=== PATIENT | male | born 1955 | race American Indian/Alaskan Native ===

== ENCOUNTER 2022-02-23 12:04 | Emergency (ER) | payer MEDICARE ==
[2022-02-23 13:17] LABS: Basophils % (Auto) 0.5 % (0.0-1.8); Eosinophils # (Auto) 0.1 K/mm3 (0.0-0.4); Eosinophils % (Auto) 1.2 % (0.0-4.3); Hematocrit 45.9 % (35.5-45.6); Hemoglobin 15.6 gm/dl (11.8-15.2); Lymphocytes # (Auto) 1.4 K/mm3 (1.2-5.4); Lymphocytes % (Auto) 29.2 % (13.4-35.0); Mean Corpuscular HGB Conc 34 % (32-34); Mean Corpuscular Volume 97 fl (84-94); Monocytes # (Auto) 0.5 K/mm3 (0.0-0.8); Monocytes % (Auto) 9.9 % (0.0-7.3); Platelet Count 299 K/mm3 (140-440); Red Blood Count 4.71 M/mm3 (3.65-5.03); Red Cell Distribution Width 13.8 % (13.2-15.2)
[2022-02-23 13:51] LABS: Alanine Aminotransferase 19 units/L (7-56); Albumin 4.6 g/dL (3.9-5); BUN/Creatinine Ratio 13; Blood Urea Nitrogen 12 mg/dL (9-20); Calcium 9.9 mg/dL (8.4-10.2); Hemolysis Index 8
--- NOTE | 2022-02-23 15:20 | XRay Report ---
CHEST 2 VIEWS INDICATION / CLINICAL INFORMATION: chest pain. COMPARISON: None available. FINDINGS: SUPPORT DEVICES: None. HEART / MEDIASTINUM: No significant abnormality. LUNGS / PLEURA: No significant pulmonary or pleural abnormality. No pneumothorax. ADDITIONAL FINDINGS: No significant additional findings. IMPRESSION: 1. No acute findings. Signer Name: Enmanuel Shultz MD Signed: 02/23/2022 3:15 PM Workstation Name: [email or web address]
[2022-02-23] MEDS ORDERED: SODIUM CHLORIDE 0.9% 1000 ML 1,000 ML IV ONE (15:27)
--- NOTE | 2022-02-23 15:45 | Emergency Department Report ---
ED Chest Pain HPI - General Chief Complaint: Chest Pain Stated Complaint: BACK/CHEST PAIN Time Seen by Provider: 02/23/22 14:43 Source: patient Mode of arrival: Ambulatory Limitations: No Limitations - History of Present Illness Initial Comments: 66-year-old male smoker with a past medical history diabetes and hypertension currently intermittently taking metformin and lisinopril presents to the hospital with multiple complaints. Patient states he has lost 25 pounds over the last 3 months And states he has had decreased appetite and only eating on average once a day. He reports having mid upper sternal chest pain described as a dull pain for the last 1 to 2 weeks. Pain is intermittent, worse with inspiration. He denies exertional chest pain and denies associated symptoms including shortness of breath, nausea, vomiting, or diaphoresis. He also complains of right lower back/flank pain for the past 9 months and has seen a chiropractor who diagnosed her with "herniated disc" without any imaging studies. Patient complains of urinary frequency without burning or straining. He also endorses that he is feeling depressed and has expressed suicidal ideation to his female best friend at the bedside. Patient has not been seen by a primary care doctor since 2018 and his been taking his left over metformin and lisinopril intermittently since this time without an updated prescription. He denies history of previous stress test. He states his mother needed valve surgery but is unclear whether or not she had CAD.\\ Patient does not complain of chest pain or flank pain/lower back pain at this time Severity scale (0 -10): 3 - Related Data Allergies Allergy/AdvReac Type Severity Reaction Status Date / Time No Known Allergies Allergy Verified 02/23/22 12:30 Heart Score - HEART Score History: Slightly suspicious EKG: Normal Age: > 65 Risk factors: 1-2 risk factors Troponin: < normal limit HEART Score: 3 - EKG Read Time Time EKG Completed: 12:38 EKG Read Time: 12:44 ED Review of Systems ROS: Stated complaint: BACK/CHEST PAIN Other details as noted in HPI Comment: All other systems reviewed and negative ED Past Medical Hx - Past Medical History Previous Medical History?: Yes Hx Diabetes: Yes - Surgical History Past Surgical History?: No - Social History Smoking Status: Current Every Day Smoker Substance Use Type: None ED Physical Exam - General Limitations: No Limitations - Other Other exam information: General: No acute distress Head: Atraumatic Eyes: normal appearance ENT: Moist mucous membranes Neck: Normal appearance, no midline tenderness Chest: Clear to auscultation bilaterally CV: Regular rate and rhythm Abdomen: Soft, normal bowel sounds, nontender, nondistended, no rebound or guarding Back: Normal inspection Extremity: Normal inspection, full range of motion Neuro: Alert O x 3, no facial asymmetry, speech clear, no gross motor sensory deficit Psych: Appropriate behavior Skin: No rash ED Course Vital Signs 02/23/22 02/23/22 12:26 14:53 Temperature 98.2 F Pulse Rate 62 Respiratory 20 8 L Rate Blood Pressure 129/56 [Right] O2 Sat by Pulse 99 100 Oximetry PENNY score - Penny Score Age > 65: (1) Yes Aspirin use within the Past 7 Days: (0) No 3 or more CAD Risk Factors: (0) No 2 or more Angina events in past 24 hrs: (0) No Known CAD with more than 50% Stenosis: (0) No Elevated Cardiac Markers: (0) No ST Deviation Greater than 0.5mm: (0) No PENNY Score: 1 ED Medical Decision Making - Lab Data Result diagrams: 02/23/22 12:52 02/23/22 12:52 Lab Results 02/23/22 02/23/22 02/23/22 Range/Units 12:52 12:52 12:52 WBC 4.8 (4.5-11.0) K/mm3 RBC 4.71 (3.65-5.03) M/mm3 Hgb 15.6 H (11.8-15.2) gm/dl Hct 45.9 H (35.5-45.6) % MCV 97 H (84-94) fl MCH 33 H (28-32) pg MCHC 34 (32-34) % RDW 13.8 (13.2-15.2) % Plt Count 299 (140-440) K/mm3 Lymph % (Auto) 29.2 (13.4-35.0) % [place] % (Auto) 9.9 H (0.0-7.3) % Eos % (Auto) 1.2 (0.0-4.3) % Baso % (Auto) 0.5 (0.0-1.8) % Lymph # (Auto) 1.4 (1.2-5.4) K/mm3 [place] # (Auto) 0.5 (0.0-0.8) K/mm3 Eos # (Auto) 0.1 (0.0-0.4) K/mm3 Baso # (Auto) 0.0 (0.0-0.1) K/mm3 Seg Neutrophils % 59.2 (40.0-70.0) % Seg Neutrophils # 2.9 (1.8-7.7) K/mm3 Sodium 138 (137-145) mmol/L Potassium 4.7 (3.6-5.0) mmol/L Chloride 100.4 (98-107) mmol/L Carbon Dioxide 27 (22-30) mmol/L Anion Gap 15 mmol/L BUN 12 (9-20) mg/dL Creatinine 0.9 (0.8-1.3) mg/dL Estimated GFR > 60 ml/min BUN/Creatinine Ratio 13 % Glucose 140 H (75-100) mg/dL Calcium 9.9 (8.4-10.2) mg/dL Total Bilirubin 0.60 (0.1-1.2) mg/dL AST 20 (5-40) units/L ALT 19 (7-56) units/L Alkaline Phosphatase 78 (35-129) units/L Troponin T < 0.010 (0.00-0.029) ng/mL Total Protein 7.6 (6.3-8.2) g/dL Albumin 4.6 (3.9-5) g/dL Albumin/Globulin Ratio 1.5 % 05/20/22 Range/Units 15:43 WBC (4.5-11.0) K/mm3 RBC (3.65-5.03) M/mm3 Hgb (11.8-15.2) gm/dl Hct (35.5-45.6) % MCV (84-94) fl MCH (28-32) pg MCHC (32-34) % RDW (13.2-15.2) % Plt Count (140-440) K/mm3 Lymph % (Auto) (13.4-35.0) % [place] % (Auto) (0.0-7.3) % Eos % (Auto) (0.0-4.3) % Baso % (Auto) (0.0-1.8) % Lymph # (Auto) (1.2-5.4) K/mm3 [place] # (Auto) (0.0-0.8) K/mm3 Eos # (Auto) (0.0-0.4) K/mm3 Baso # (Auto) (0.0-0.1) K/mm3 Seg Neutrophils % (40.0-70.0) % Seg Neutrophils # (1.8-7.7) K/mm3 Sodium (137-145) mmol/L Potassium (3.6-5.0) mmol/L Chloride (98-107) mmol/L Carbon Dioxide (22-30) mmol/L Anion Gap mmol/L BUN (9-20) mg/dL Creatinine (0.8-1.3) mg/dL Estimated GFR ml/min BUN/Creatinine Ratio % Glucose (75-100) mg/dL Calcium (8.4-10.2) mg/dL Total Bilirubin (0.1-1.2) mg/dL AST (5-40) units/L ALT (7-56) units/L Alkaline Phosphatase (35-129) units/L Troponin T < 0.010 (0.00-0.029) ng/mL Total Protein (6.3-8.2) g/dL Albumin (3.9-5) g/dL Albumin/Globulin Ratio % - EKG Data -: EKG Interpreted by [place] EKG shows normal: sinus rhythm, ST-T waves (no stemi) Rate: normal (60) - EKG Data When compared to previous EKG there are: previous EKG unavailable - Radiology Data Radiology results: report reviewed CHEST 2 VIEWS INDICATION / CLINICAL INFORMATION: chest pain. COMPARISON: None available. FINDINGS: SUPPORT DEVICES: None. HEART / MEDIASTINUM: No significant abnormality. LUNGS / PLEURA: No significant pulmonary or pleural abnormality. No pneumothorax. ADDITIONAL FINDINGS: No significant additional findings. IMPRESSION: 1. No acute findings. CTA CHEST WITH CONTRAST INDICATION : chest pain, weight loss. TECHNIQUE: Axial imaging performed through the chest, with contrast bolus t iming set to maximize opacification of the pulmonary arteries. Sagittal and coronal reformatted salvador ges. 3-plane MIP reformatted images were obtained. All CT scans at this location are performed using CT dose reduction for ALARA by means of automated exposure control. Omnipaque 350 100 mL of intravenous contrast administered. COMPARISON: None FINDINGS: Bolus: Contrast bolus timing is adequate. PTE: No filling defect is present to suggest PTE. Mediastinum: Heart and great vessels appear normal. No pathologic mediastinal adenopathy. Lungs: Minimal centrilobular emphysematous changes are identified in the upper lung zones. No evidence for nodule, infiltrate, interstitial disease, pleural effusion or pneumothorax. Bones: Degenerative changes in the spine with nothing acute. Upper abdomen: The left kidney is not identified in the upper abdomen. This could represent ectopia, agenesis or nephrectomy. IMPRESSION: Negative for PTE. Clear lungs. Minimal emphysematous changes. The left kidney is not identified in the upper abdomen. See above. CT ABDOMEN AND PELVIS WITH CONTRAST HISTORY: right flank pain, decrease appetite weight loss COMPARISON: None TECHNIQUE: Routine abdominal and pelvic CT exam performed following intravenous contrast administration.. All CT scans at this location are performed using CT dose reduction for ALARA by means of automated exposure control. FINDINGS: CT ABDOMEN: Lung Bases: No significant abnormality. Liver: No significant abnormality. Biliary: No significant abnormality. Spleen: No significant abnormality. Unenlarged. Pancreas: No significant abnormality. Adrenals: No significant abnormality. Kidneys: No acute findings. Left kidney is abnormally low in the abdomen. Lymphatics: No lymphadenopathy. Vasculature: No significant abnormality. Bowel/Peritoneum: No significant abnormality. No free air. No free fluid. Norm al appendix. CT PELVIC: : No significant abnormality. Lymphatics: No lymphadenopathy. Osseous Structures: No aggressive appearing osseous lesions. Additional Findings: None IMPRESSION: 1. No acute findings. - Medical Decision Making 66-year-old male presents to the hospital with multiple complaints including chest pain for several weeks, right lower back pain for at least 9 months, and decreased appetite with weight loss for the last couple of months. Patient did not have any associated symptoms. Patient had a heart score of 3 he received ED cardiac work-up including troponin x2 and EKG. These results were normal and patient did not have active chest pain in the ED. He received him CT angiogram chest and CT abdomen and pelvis did not show any acute abnormality to suggest PE cancer or metastasis as cause of chest pain or decrease appetite. Patient medically cleared and pending inpatient psychiatric admission with depression and associated decreased appetite. Since patient is suicidal 1013 has been signed Critical Care Time: No Critical care attestation.: If time is entered above; I have spent that time in minutes in the direct care of this critically ill patient, excluding procedure time. ED Disposition Clinical Impression: Suicidal ideation, Decreased appetite, Depression, Atypical chest pain, Medical clearance for psychiatric admission, Diabetes Disposition: 01 HOME / SELF CARE / HOMELESS Is pt being admited?: No Does the pt Need Aspirin: No Condition: Stable Instructions: Diabetes Mellitus Type 2 in Adults (ED) Time of Disposition: 20:59
--- NOTE | 2022-02-23 16:34 | Cat Scan Report ---
CTA CHEST WITH CONTRAST INDICATION : chest pain, weight loss. TECHNIQUE: Axial imaging performed through the chest, with contrast bolus timing set to maximize opa cification of the pulmonary arteries. Sagittal and coronal reformatted images. 3-plane MIP reformatte d images were obtained. All CT scans at this location are performed using CT dose reduction for ALAR A by means of automated exposure control. Omnipaque 350 100 mL of intravenous contrast administered. COMPARISON: None FINDINGS: Bolus: Contrast bolus timing is adequate. PTE: No filling defect is present to suggest PTE. Mediastinum: Heart and great vessels appear normal. No pathologic mediastinal adenopathy. Lungs: Minimal centrilobular emphysematous changes are identified in the upper lung zones. No eviden ce for nodule, infiltrate, interstitial disease, pleural effusion or pneumothorax. Bones: Degenerative changes in the spine with nothing acute. Upper abdomen: The left kidney is not identified in the upper abdomen. This could represent ectopia, agenesis or nephrectomy. IMPRESSION: Negative for PTE. Clear lungs. Minimal emphysematous changes. The left kidney is not identified in the upper abdomen. See above. Signer Name: Mendez Walter Jr, MD Signed: 02/23/2022 4:29 PM Workstation Name: [id number]
--- NOTE | 2022-02-23 16:40 | Cat Scan Report ---
CT ABDOMEN AND PELVIS WITH CONTRAST HISTORY: right flank pain, decrease appetite weight loss COMPARISON: None TECHNIQUE: Routine abdominal and pelvic CT exam performed following intravenous contrast administrat ion.. All CT scans at this location are performed using CT dose reduction for ALARA by means of autom ated exposure control. FINDINGS: CT ABDOMEN: Lung Bases: No significant abnormality. Liver: No significant abnormality. Biliary: No significant abnormality. Spleen: No significant abnormality. Unenlarged. Pancreas: No significant abnormality. Adrenals: No significant abnormality. Kidneys: No acute findings. Left kidney is abnormally low in the abdomen. Lymphatics: No lymphadenopathy. Vasculature: No significant abnormality. Bowel/Peritoneum: No significant abnormality. No free air. No free fluid. Normal appendix. CT PELVIC: : No significant abnormality. Lymphatics: No lymphadenopathy. Osseous Structures: No aggressive appearing osseous lesions. Additional Findings: None IMPRESSION: 1. No acute findings. Signer Name: Gage Peña MD Signed: 02/23/2022 4:35 PM Workstation Name: [id number]
--- NOTE | 2022-02-24 09:51 | Consultation ---
History of Present Illness - Reason for Consult Consult date: 02/24/22 Reason for consult: depression - History of Present Psychiatric Illness HPI: 66-year-old male smoker with a past medical history diabetes and hypertension currently intermittently taking metformin and lisinopril presents to the hospital with multiple complaints. Patient states he has lost 25 pounds over the last 3 months And states he has had decreased appetite and only eating on average once a day. He reports having mid upper sternal chest pain described as a dull pain for the last 1 to 2 weeks. Pain is intermittent, worse with inspiration. He denies exertional chest pain and denies associated symptoms including shortness of breath, nausea, vomiting, or diaphoresis. He also complains of right lower back/flank pain for the past 9 months and has seen a chiropractor who diagnosed her with "herniated disc" without any imaging studies. Patient complains of urinary frequency without burning or straining. He also endorses that he is feeling depressed and has expressed suicidal ideation to his female best friend at the bedside. The patient was seen today. His stories appear to be conflicting, as information given to the advanced quality engineer is different. He is upset that he was kept in the hospital. The patient says he came here for weight loss, chest pain and diabetes. The patient says he doesn't understand why he was kept and placed in the psych holding. 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 He says "but I'm not suicidal and never have been." He says "I got a daughter who just finished college. I am a proud father and would never hurt myself or anybody." The patient says "like I said, I am depressed but not suicidal." He says he hasn't seen a psychiatrist in 20 years. The patient denies hallucinations of any kind. He also denies any illicit drug use, alcohol or nicotine. Per advanced quality engineer's note: Pt is a 56 yo AA male presenting to ED for MHE, as pt reported SI w/o plan. During ax, pt presented as with cooperative behaviors, depressed mood and congruent affect. Pt called Pt reports onset of SI without a plan since 02/22/22. Pt reports triggers include eviction from auto repair shop, finaancial stressors. Pt is living in [place]. Pt also reports eating one meal per day or everyother day for several weeks. Pt reports SI /wo plan. Pt denies he wrote suciide note. According to collateral Mrs. Rodriguez(indiviudal is bedside) pt called her and told her he wanted to . Pt also stated its time for me to end it . Pt denies hx of attempts. Pt denies HI. Pt denies A/V H. Pt denies hx of Major Depression. Pt is not receiving mh services. Will recommend psychiatric inpatient treatment based on advanced quality engineer's assessment and start medication. PAST PSYCHIATRIC HISTORY Diagnoses: Depression Suicide attempts or Self-harm behavior: Denies Prior psychiatric hospitalizations: Denies Substance Abuse history: Denies Previous psychiatric medications tried: Denies Outpatient treatment: Denies PAST MEDICAL HISTORY: None reported Family Psychiatric History: None reported or documented SOCIAL HISTORY Marital Status: Living Arrangements: lives alone Employment Status: Self employed Access to guns/weapons: Denies Education: 12th grade History of Abuse: Denies Legal History: Denies REVIEW OF SYSTEMS Constitutional: Negative for weight loss ENT: Negative for stridor Respiratory: Negative for cough or hemoptysis All other systems reviewed and are negative MENTAL STATUS EXAMINATION General Appearance and Behavior: Age appropriate, good hygiene, wearing appropriate clothes, eye contact, calm, cooperative and polite Cooperation: Cooperative Psychomotor Behavior: Psychomotor normal Mood: Depressed Affect and affective range: congruent with stated mood Thought Process: Goal directed Thought Content: None Speech: normal tone and pace Suicidal Ideation: Denies Homicidal Ideation: Denies Hallucinations: Denies Delusions: None elicited Impulse Control: Limited Insight and Judgment: Limited insight and judgment Memory: Limited Attention: attentive Orientation: Alert, oriented Assessment and Plan (1) Major depressive disorder Treatment Plan 1013 Zoloft 25mg po daily Remeron 7.5mg po qhs Medical: Per primary Sitter: Defer to primary Disposition: Recommend acute psychiatric inpatient treatment Will follow. Thanks Case staffed with Dr. Torres Medications and Allergies Allergies Allergy/AdvReac Type Severity Reaction Status Date / Time No Known Allergies Allergy Verified 02/23/22 12:30 Active Meds: Active Medications Metformin HCl (Metformin 500 Mg Tab) 500 mg PO BIDDIAB [facility] Mental Status Exam - Vital signs Last Vital Signs Temp 98.4 F 02/24/22 07:12 Pulse 62 02/24/22 07:12 Resp 16 02/24/22 07:12 BP 120/72 02/24/22 07:12 Pulse Ox 100 02/24/22 07:12 Results Result Diagrams: 02/23/22 12:52 02/23/22 12:52 Abnormal lab results 02/23/22 02/23/22 Range/Units 12:52 12:52 Hgb 15.6 H (11.8-15.2) gm/dl Hct 45.9 H (35.5-45.6) % MCV 97 H (84-94) fl MCH 33 H (28-32) pg [place] % (Auto) 9.9 H (0.0-7.3) % Glucose 140 H (75-100) mg/dL All other labs normal.
--- NOTE | 2022-02-24 11:32 | Emergency Department Report ---
Blank Doc - Documentation Documentation: 66 yo male currently on 1013 for depression and SI with decreased appetite with associated weight loss. Patient is currently awaiting placement and oral meds have been initiated by mental health provider. Vital signs reviewed
[2022-02-24] MEDS: metFORMIN 500 MG TAB PO SCH (12:51)
[2022-02-24] MEDS: SERTRALINE 25 MG TAB PO SCH (12:55)
[2022-02-24] MEDS ORDERED: MIRTAZAPINE 15 MG TAB PO SCH (22:00)
[2022-02-25] MEDS: metFORMIN 500 MG TAB PO SCH (08:55)
[2022-02-25 09:19] VITALS: BP 107/60
[2022-02-25] MEDS: SERTRALINE 25 MG TAB PO SCH (09:41)
--- NOTE | 2022-02-25 10:58 | Progress Note ---
Subjective - Reason for Consult Consult date: 02/25/22 Reason for consult: SI - Chief Complaint Chief complaint: The patient was seen today. He is calm and cooperative. He is adamant about not being suicidal or ever feeling this way. The patient says "If I don't get out of here and take care of my finances I'm going to be worse off." He says "I got too much responsibility to hurt myself or anybody else." He denies hallucinations of any kind. REVIEW OF SYSTEMS Constitutional: Negative for weight loss ENT: Negative for stridor Respiratory: Negative for cough or hemoptysis All other systems reviewed and are negative MENTAL STATUS EXAMINATION General Appearance and Behavior: Age appropriate, good hygiene, wearing appropriate clothes, eye contact, calm, cooperative and polite Cooperation: Cooperative Psychomotor Behavior: Psychomotor normal Mood: Depressed Affect and affective range: congruent with stated mood Thought Process: Goal directed Thought Content: None Speech: normal tone and pace Suicidal Ideation: Denies Homicidal Ideation: Denies Hallucinations: Denies Delusions: None elicited Impulse Control: Limited Insight and Judgment: Limited insight and judgment Memory: Limited Attention: attentive Orientation: Alert, oriented Assessment and Plan (1) Major depressive disorder Treatment Plan d/c 1013 Zoloft 25mg po daily Remeron 7.5mg po qhs Medical: Per primary Sitter: Defer to primary Disposition: Do not recommend acute psychiatric inpatient treatment. The patient understands that if SI/HI are to arise he is to seek immediate assistance The inventory control assistant to further discuss safety plan and give the patient all necessary outpatient resources. The patient to follow up with outpatient psych in 7 to 14 days upon discharge. Will sign off. Thanks Case staffed with Dr. Torres Mental Status Exam - Vital signs Last Vital Signs Temp 97.9 F 02/25/22 09:00 Pulse 74 02/25/22 09:00 Resp 16 02/25/22 09:00 BP 107/60 02/25/22 09:00 Pulse Ox 99 02/25/22 09:00
--- NOTE | 2022-02-25 18:09 | Electrocardiograph Report ---
[facility] Test Date: 2022-02-23 Test Time: 12:38:08 Pat Name: MELY NICOLE Department: Room: Gender: M Tape Cutter: : 1955 Requested By: MELANIE CARDOZA Order Number: [id number] Reading MD: Jim Juárez Measurements Intervals [place] Rate: 60 P: 68 NE: 141 QRS: -30 QRSD: 83 T: 35 QT: 406 QTc: 404 Interpretive Statements Sinus rhythm Left axis deviation No previous ECG available for comparison Electronically Signed On 02-25-2022 18:09:45 EDT by Jim Juárez
== END 2022-02-25 12:21 | disposition home or self-care (01) ==
LOC: EDBD → ED 12:04
DX: R45.851 Suicidal ideations (principal); Z20.822 Contact with and (suspected) exposure to COVID-19; F32.A Depression, unspecified; R07.9 Chest pain, unspecified; Z13.30 Encounter for screening examination for mental health and behavioral disorders, unspecified; E11.9 Type 2 diabetes mellitus without complications
CPT/HCPCS: 36415; 71046; 71275; 74177; 80053; 84484; 85025; 93005; 96360; 96361; 99285; Q9967; U0003; 99284